=== PATIENT | female | born 1965 | race Two or more races ===

== ENCOUNTER → 2023-05-19 | Outpatient (CLI) | payer BC, SELFPAY ==
[2023-05-19 12:03] LABS: Absolute Lymphocyte Count 2.08 X10^3/uL (0.83-4.51); Absolute Neutrophil Count 3.2 X10^3/uL (2.0-7.7); Basophil# 0.05 X10^3/uL; Basophil% 0.8 % (0-1); Eosinophil# 0.12 X10^3/uL; Hematocrit 43.2 % (37-47); Hemoglobin 14.4 g/dL (12.0-15.0); Lymphocyte # 2.08 X10^3/ul (0.83-4.51); Mean Corp Hgb Conc 33.3 g/dL (32-36); Mean Corpuscular Hgb 30.3 pg (27.0-32.0); Mean Corpuscular Volume 90.8 fL (81-99); Mean Platelet Vol. 10.6 fl (6.2-12.0); Monocyte# 0.45 X10^3/uL; Monocyte% 7.6 % (0-10); NRBC Flagged by Analyzer 0 % (0-5); Neutrophil # 3.23 X10^3/uL (2.7-7.7); Neutrophil % 54.3 % (47-70); Platelet Count 360 K/mm3 (150-450); RBC Distribution Width SD 39.8 fl (35.1-43.9); Red Blood Count 4.76 M/mm3 (4.2-5.4)
[2023-05-20 09:16] LABS: Progesterone Level < 0.21 ng/mL (See Comment)
[2023-05-23 06:08] LABS: G6PD Quant Test 281 (127-427); Red Blood Cell Count Test/G6PD 4.76 x10E6/uL (3.77-5.28)
== END | disposition home or self-care (01) ==
LOC: LABSPEC 11:14
PROVIDERS: Referring Provider Nurse Practitioner Family; Visit Provider Nurse Practitioner Family
DX: R53.82 Chronic fatigue, unspecified (principal); R51.9 Headache, unspecified; M79.7 Fibromyalgia; R53.81 Other malaise; F41.9 Anxiety disorder, unspecified; G47.00 Insomnia, unspecified; F32.A Depression, unspecified; G31.84 Mild cognitive impairment of uncertain or unknown etiology; B60.09 Other babesiosis; A69.29 Other conditions associated with Lyme disease; E28.9 Ovarian dysfunction, unspecified
CPT/HCPCS: 80053; 82627; 82670; 82955; 84144; 84403; 85025; 82626